=== PATIENT | female | born 1995 | race Caucasian/White ===

== ENCOUNTER 2019-05-09 00:26 | Inpatient (IN) | payer BC ==
[2019-05-09] MEDS ORDERED: ceFAZolin 2 GM in Premix Bag 1 BAG IV ONE (05:00)
[2019-05-09] MEDS ORDERED: Sodium Chloride 0.9% 2.5 ML Syringe FLUSH PRN (05:14)
[2019-05-09] MEDS ORDERED: Sodium Chloride 0.9% 10 ML Syringe FLUSH PRN (05:14)
[2019-05-09] MEDS ORDERED: Sodium Chloride 0.9% 10 ML SDV IV PRN (05:14)
[2019-05-09] MEDS ORDERED: Citric Acid/Sodium Citrate Solution 30 ML Cup PO ONE (05:14)
[2019-05-09] MEDS ORDERED: Oxytocin/0.9 % Sodium Chloride 30 UNIT/500 ML BAG IV SCH (05:15)
[2019-05-09] MEDS: Lactated Ringers 1,000 ML IV SCH ×2 (05:45→06:46)
--- NOTE | 2019-05-09 06:50 | PCM.PREANE ---
Preanesthetic Assessment - Anesthesia/Transfusion/Family Hx Anesthesia History: Prior Anesthesia Reaction Family History of Anesthesia Reaction: No Transfusion History: No Prior Transfusion(s) Type of Transfusion Reactions: Reports: Unknown Intubation History: Unknown - Review of Systems General: No Symptoms Pulmonary: No Symptoms Cardiovascular: No Symptoms Gastrointestinal: No Symptoms Neurological: No Symptoms Other: Reports: None - Physical Assessment Height: 5 ft 9 in Weight: 82.544 kg ASA Class: 2 Mental Status: Alert & Oriented x3 Airway Class: Mallampati = 2 Dentition: Reports: Normal Dentition Thyro-Mental Finger Breadths: 3 Mouth Opening Finger Breadths: 3 ROM/Head Extension: Full Lungs: Clear to Auscultation, Normal Respiratory Effort Cardiovascular: Regular Rate, Regular Rhythm - Lab Values: Laboratory Last Values WBC 8.95 K/uL (4.0-11.0) 05/09/19 05:33 RBC 4.01 M/uL (4.30-5.90) L 05/09/19 05:33 Hgb 11.8 g/dL (12.0-16.0) L 05/09/19 05:33 Hct 36.4 % (36.0-46.0) 05/09/19 05:33 MCV 90.8 fL (80.0-98.0) 05/09/19 05:33 MCH 29.4 pg (27.0-32.0) 05/09/19 05:33 MCHC 32.4 g/dL (31.0-37.0) 05/09/19 05:33 RDW Std Deviation 45.1 fl (28.0-62.0) 05/09/19 05:33 RDW Coeff of Olga 14 % (11.0-15.0) 05/09/19 05:33 Plt Count 236 K/uL (150-400) 05/09/19 05:33 MPV 10.90 fL (7.40-12.00) 05/09/19 05:33 Nucleated RBC % 0.0 /100WBC 05/09/19 05:33 Nucleated RBCs # 0 K/uL 05/09/19 05:33 Blood Type A POSITIVE 05/09/19 05:33 Antibody Screen NEGATIVE 05/09/19 05:33 - Allergies Allergies/Adverse Reactions: Allergies Allergy/AdvReac Type Severity Reaction Status Date / Time No Known Allergies Allergy Verified 05/04/19 07:32 - Blood Blood Available: No - Anesthesia Plan Pre-Op Medication Ordered: None - Acknowledgements Anesthesia Type Planned: Spinal (general anesthesia back-up plan) Pt an Appropriate Candidate for the Planned Anesthesia: Yes Alternatives and Risks of Anesthesia Discussed w Pt/Guardian: Yes Pt/Guardian Understands and Agrees with Anesthesia Plan: Yes PreAnesthesia Questionnaire HEENT History: Reports: None Cardiovascular History: Reports: None Respiratory History: Reports: Asthma Gastrointestinal History: Reports: GERD Genitourinary History: Reports: None 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: Musculoskeletal History: Reports: None Neurological History: Reports: Concussion Psychiatric History: Reports: None Endocrine/Metabolic History: Reports: None Hematologic History: Reports: None Immunologic History: Reports: None Oncologic (Cancer) History: Reports: None Dermatologic History: Reports: None - Infectious Disease History Infectious Disease History: Reports: Chicken Pox - Past Surgical History Head Surgeries/Procedures: Reports: None HEENT Surgical History: Reports: Tonsillectomy Cardiovascular Surgical History: Reports: None Respiratory Surgical History: Reports: None GI Surgical History: Reports: None Female Surgical History: Reports: Section (emergency C/S, spinal did not have time take in) Endocrine Surgical History: Reports: None Neurological Surgical History: Reports: None Musculoskeletal Surgical History: Reports: None Oncologic Surgical History: Reports: None Dermatological Surgical History: Reports: None - SUBSTANCE USE Smoking Status *Q: Current Every Day Smoker Tobacco Use Within Last Twelve Months: Cigars Second Hand Smoke Exposure: No Recreational Drug Use History: No - HOME MEDS Home Medications: Home Meds Albuterol Sulfate [Albuterol Sulfate Hfa] 1 inhalation INH ASDIRECTED PRN [History] PNV95/Ferrous Fumarate/FA [ Vitamin Tablet] 1 tab PO DAILY 05/04/19 [ History] Sucralfate 1 tab PO QID 05/04/19 [History] - CURRENT (IN HOUSE) MEDS Current Meds: Current Medications Lactated Ringer's (Ringers, Lactated) 1,000 mls @ 500 mls/hr IV BOLUS DAIJA Last Admin: 05/09/19 06:46 Dose: 500 mls/hr Oxytocin/Sodium Chloride (Oxytocin 30 Unit/500 Ml-Ns) 30 unit in 500 mls @ 250 mls/hr IV TITRATE DAIJA Sodium Chloride (Saline Flush) 10 ml FLUSH ASDIRECTED PRN PRN Reason: Keep Vein Open Sodium Chloride (Saline Flush) 2.5 ml FLUSH ASDIRECTED PRN PRN Reason: Keep Vein Open Sodium Chloride (Normal Saline) 10 ml IV ASDIRECTED PRN PRN Reason: IV Use Discontinued Medications Citric Acid/Sodium Citrate (Bicitra Solution) 30 ml PO ONETIME ONE Stop: 05/09/19 05:15 Cefazolin Sodium/Dextrose 2 gm (/ Premix) 50 mls @ 100 mls/hr IV ONETIME ONE Stop: 05/09/19 05:29
[2019-05-09] MEDS ORDERED: Sodium Chloride 0.9% 40 ML ONE (07:28)
[2019-05-09] MEDS ORDERED: Oxytocin 10 Units/1 ML SDV ONE (07:28)
[2019-05-09] MEDS ORDERED: ceFAZolin 1 GM Vial ONE (07:28)
[2019-05-09] MEDS ORDERED: Morphine PF 10 MG/10 ML SDV ONE (07:28)
[2019-05-09] MEDS ORDERED: Ondansetron 4 MG/2 ML SDV ONE (07:28)
[2019-05-09] MEDS ORDERED: ePHEDrine 50 MG/ML SDV ONE (07:28)
[2019-05-09] MEDS ORDERED: Phenylephrine/Normal Saline 100 MCG/ML 10 ML Syringe ONE (08:03)
[2019-05-09] MEDS ORDERED: Midazolam 1 MG/ML 2 ML SDV ONE (08:18)
[2019-05-09] MEDS ORDERED: Acetaminophen/oxyCODONE 325-5 MG Tab PO PRN ×2 (08:47→08:57)
[2019-05-09] MEDS ORDERED: Aluminum Hydroxide/Magnesium Hydroxide/Simethicone Susp 30 ML Cup PO PRN (08:47)
[2019-05-09] MEDS ORDERED: diphenhydrAMINE 50 MG/ML SDV IVPUSH PRN ×2 (08:47→08:57)
[2019-05-09] MEDS ORDERED: Bisacodyl 10 MG Supp RECTAL PRN (08:47)
[2019-05-09] MEDS ORDERED: Lanolin 100% Cream 7 GM Tube TOP PRN (08:47)
[2019-05-09] MEDS ORDERED: Ondansetron 4 MG/2 ML SDV IVPUSH PRN ×2 (08:47→08:57)
--- NOTE | 2019-05-09 08:56 | PCM.OPNOTE ---
- General Post-Op/Procedure Note Date of Surgery/Procedure: 05/09/19 Operative Procedure(s): Repeat LTCS Findings: Viable female APGARS 9, 9 weight 3430 gm. Intact placenta with 3V cord Pre Op Diagnosis: 39 week IUP. Previous csection, desires repeat Post-Op Diagnosis: Same Anesthesia Technique: Spinal Primary Surgeon: Niki Arias Global Recruiter: Nancy Cowan Global Recruiter: Elkin Frost Fluid Replacement, Intraop: 1,500 EBL in mLs: 500 Complications: none known Condition: Stable Free Text/Narrative:: Dictation [id number]
[2019-05-09] MEDS ORDERED: fentaNYL 100 MCG/2 ML SDV IVPUSH PRN (08:57)
[2019-05-09] MEDS ORDERED: Naloxone 0.4 MG/ML Syringe IVPUSH PRN (08:57)
[2019-05-09] MEDS ORDERED: Nalbuphine 10 MG/1 ML Vial IVPUSH PRN ×2 (08:57→11:00)
[2019-05-09] MEDS ORDERED: Lactated Ringers 1,000 ML IV SCH (09:00)
[2019-05-09] MEDS: Ketorolac 30 MG/ML SDV IVPUSH SCH ×3 (09:14→21:44)
--- NOTE | 2019-05-09 09:32 | PCM.POSTAN ---
POST ANESTHESIA ASSESSMENT - MENTAL STATUS Mental Status: Alert, Oriented - VITAL SIGNS Vital Signs: Last Vital Signs Temp 37 C 05/09/19 08:52 Pulse 69 05/09/19 09:25 Resp 13 05/09/19 09:25 BP 118/59 L 05/09/19 09:25 Pulse Ox 99 05/09/19 09:25 - RESPIRATORY Respiratory Status: Respiratory Rate WNL, Airway Patent, O2 Saturation Stable - CARDIOVASCULAR CV Status: Pulse Rate WNL, Blood Pressure Stable - GASTROINTESTINAL GI Status: No Symptoms - PAIN Pain Score: 0 - POST OP HYDRATION Hydration Status: Adequate & Stable - OBSERVATIONS Free Text/Narrative:: No anesthesia problems
[2019-05-09] MEDS: Docusate Sodium 100 MG Cap PO SCH ×2 (10:18→21:44)
--- NOTE | 2019-05-09 12:12 | OR ---
SURGEON: Niki Arias M.D. DATE OF PROCEDURE: 05/09/2019 PREOPERATIVE DIAGNOSES: 1. A 39 weeks' intrauterine . 2. Previous section, desires repeat. POSTOPERATIVE DIAGNOSES: 1. A 39 weeks' intrauterine . 2. Previous section, desires repeat. PROCEDURE: Repeat low-transverse section. PRIMARY SURGEON: Niki Arias MD. PIPE THREADER: 1. Lauren Cowan. 2. Rosie Frost MS4. ANESTHESIA: Spinal. ESTIMATED BLOOD LOSS: 500 mL. FLUIDS: 1500 mL of crystalloid. COMPLICATIONS: None known. FINDINGS: Viable female. scores 9 at 1 minute and 9 at 5 minutes. Weight 3430 g. Intact placenta, 3-vessel cord. Normal-appearing pelvis. DISPOSITION: Infant to nursery, mom in LDRP, stable. PROCEDURE DETAILS: Bridget is a 24-year-old, G2, P1, at 39 weeks' gestational age, who presents on the morning of 05/09/2019 for scheduled repeat delivery. Risks of procedure have been discussed. Proper consent obtained. The patient was taken to the operating room. The patient underwent spinal anesthetic, was then placed in the dorsal supine position with leftward tilt. SCDs to lower extremities. Waddell to gravity. Was prepped and draped in usual sterile fashion. Time-out was performed. Anesthesia was tested, found to be adequate. Previous Pfannenstiel scar was now excised. Subcutaneous tissue was incised down to level of the rectus fascia, which was incised in midline, lateralized on either side sharply and bluntly. Superior aspect of the fascia was tented upward, dissected sharply and bluntly away from underlying muscles. In a similar aspect, performed the inferior aspect of the fascia. Rectus muscles were now sharply in the midline. Peritoneum was entered. Rectus muscles and peritoneum were lateralized bluntly. Uterine position and position palpated. Self-retaining retractor was gently placed. Uterovesical reflection was visualized. Bladder flap was created sharply and bluntly. Bladder was mobilized away from lower uterine segment. Low transverse hysterotomy was now performed. Uterine cavity was entered with blunt-ended scalpel. Amniotomy was performed. Clear fluid was returned and hysterotomy was now lateralized bluntly. The 's head was flexed, delivered from the pelvis. Fundal pressure was applied while the head was delivered followed by anterior shoulder, posterior shoulder, and remainder of the body without difficulty. The 's oropharynx and nares were bulb suctioned. After a delay, cord was clamped x2 and cut. was handed off to attending nursery staff. Cord arterial, cord venous, cord blood sampling obtained. The placenta was now delivered. Uterine cavity was cleared of all clot and debris. Hysterotomy was repaired using 0 Vicryl in continuous running locked fashion followed by re-imbricating layer. The posterior aspect of the uterus inspected, no defects or hematomas were found be forming. Region was well irrigated, suction dried. Uterus returned to abdominal cavity. The colonic gutters were cleared of all clot and debris, well irrigated and suction dried. Hysterotomy was again inspected and found to be hemostatic. Self- retaining retractor now gently removed. Bladder blade, which was now placed. Hysterotomy was again inspected. Areas of serosal oozing were cauterized. Otherwise, hemostasis evident. The bladder blade was removed. Rectus muscle and peritoneum were now reapproximated using inverted mattress suture technique. Anterior aspect of the muscle, posterior aspect of the fascia closely inspected, any areas of oozing were cauterized. The rectus fascia was reapproximated using 0 Vicryl in continuous running fashion, beginning laterally on either side and meeting in the midline. Subcutaneous tissue was well irrigated, suction dried, any areas of oozing were cauterized. The skin edges were reapproximated using 4 - 0 Vicryl on a Santana needle in subcuticular fashion followed by re-imbrication with half-inch Steri-Strips and Mastisol. Sponge, instrument, and needle count was correct x2. The patient has tolerated the procedure well overall. She will go to PACU in stable condition, infant to nursery. LEVY / SERGEY /[id number] LARA
[2019-05-09] MEDS: Simethicone 80 MG Tab.Chew PO SCH ×2 (13:51→21:20)
--- NOTE | 2019-05-09 20:53 | PCM48HPAN ---
Post Anesthesia Note - EVALUATION WITHIN 48HRS OF ANESTHETIC Vital Signs in Normal Range: Yes Patient Participated in Evaluation: Yes Respiratory Function Stable: Yes Airway Patent: Yes Cardiovascular Function Stable: Yes Hydration Status Stable: Yes Pain Control Satisfactory: Yes Nausea and Vomiting Control Satisfactory: Yes Mental Status Recovered: Yes Vital Signs: Last Vital Signs Temp 36.5 C 05/09/19 19:00 Pulse 73 05/09/19 19:00 Resp 17 05/09/19 19:00 BP 110/60 05/09/19 19:00 Pulse Ox 97 05/09/19 19:00 - COMMENTS/OBSERVATIONS Free Text/Narrative:: patient has a lot of itching. She has received Nubain for this. She has been up to the bathroom and was able to void.
[2019-05-10] MEDS: Simethicone 80 MG Tab.Chew PO SCH ×4 (00:21→18:28)
[2019-05-10] MEDS: Ketorolac 30 MG/ML SDV IVPUSH SCH ×2 (03:30→09:25)
--- NOTE | 2019-05-10 06:41 | PCM.PNPP ---
- General Info Date of Service: 05/10/19 Functional Status: Reports: Pain Controlled, Tolerating Diet, Ambulating, Urinating - Review of Systems General: Reports: Fatigue. Denies: Fever, Weakness Pulmonary: Denies: Shortness of Breath Cardiovascular: Denies: Chest Pain, Palpitations, Lightheadedness Gastrointestinal: Denies: Abdominal Pain, Nausea, Vomiting Genitourinary: Denies: Flank Pain Musculoskeletal: Reports: No Symptoms Skin: Reports: No Symptoms Neurological: Reports: No Symptoms Psychiatric: Reports: No Symptoms - General Info Date of Service: 05/10/19 - Patient Data Vital Signs - Most Recent: Last Vital Signs Temp 35.9 C 05/10/19 04:00 Pulse 75 05/10/19 06:00 Resp 14 05/10/19 06:00 BP 102/53 L 05/10/19 04:00 Pulse Ox 96 05/10/19 06:00 Weight - Most Recent: 82.544 kg I&O - Last 24 Hours: Intake & Output 05/09/19 05/09/19 05/10/19 14:59 22:59 06:59 Intake Total 3100 Output Total 475 975 Balance 2625 -975 Lab Results - Last 24 Hours: Laboratory Results - last 24 hr 05/09/19 05/09/19 05/10/19 Range/Units 05:33 08:18 06:13 Hgb 10.7 L (12.0-16.0) g/dL Hct 33.3 L (36.0-46.0) % Cord ABG pH 7.276 (7.18-7.38) Cord ABG Base Excess -4 (-10--2) Cord VBG pH 7.334 (7.25-7.45) Cord VBG Base Excess -4 (-10--2) Blood Type A POSITIVE Antibody Screen NEGATIVE Med Orders - Current: Current Medications Al Hydroxide/Mg Hydroxide (Mag-Al Plus) 30 ml PO Q8H PRN PRN Reason: Heartburn Bisacodyl (Dulcolax) 10 mg RECTAL ONETIME PRN PRN Reason: Constipation Diphenhydramine HCl (Benadryl) 25 mg IVPUSH Q6H PRN PRN Reason: Itching or Nausea Diphenhydramine HCl (Benadryl) 25 mg IVPUSH Q4H PRN PRN Reason: Itching Stop: 05/10/19 08:57 Docusate Sodium (Colace) 100 mg PO BID [facility] Last Admin: 05/09/19 21:44 Dose: 100 mg Emollient Ointment (Lansinoh Hpa) 0 gm TOP ASDIRECTED PRN PRN Reason: Sore Nipples Last Admin: 05/09/19 15:37 Dose: 7 gm Fentanyl (Sublimaze) 50 mcg IVPUSH Q1H PRN PRN Reason: Pain (severe 7-10) Lactated Ringer's (Ringers, Lactated) 1,000 mls @ 500 mls/hr IV BOLUS [facility] Last Admin: 05/09/19 06:46 Dose: 500 mls/hr Oxytocin/Sodium Chloride (Oxytocin 30 Unit/500 Ml-Ns) 30 unit in 500 mls @ 250 mls/hr IV TITRATE [facility] Lactated Ringer's (Ringers, Lactated) 1,000 mls @ 125 mls/hr IV ASDIRECTED [facility] Last Admin: 05/09/19 13:45 Dose: 125 mls/hr Ibuprofen (Motrin) 800 mg PO Q8H PRN PRN Reason: mild pain or fever Ketorolac Tromethamine (Toradol) 30 mg IVPUSH Q6H [facility] Stop: 05/10/19 09:01 Last Admin: 05/10/19 03:30 Dose: 30 mg Nalbuphine HCl (Nubain) 5 mg IVPUSH .Q4-Q6H PRN PRN Reason: Itching Last Admin: 05/09/19 14:22 Dose: 5 mg Naloxone HCl (Narcan) 0.1 mg IVPUSH ONETIME PRN PRN Reason: Respiratory Depression Stop: 05/10/19 08:57 Ondansetron HCl (Zofran) 4 mg IVPUSH Q4H PRN PRN Reason: Nausea/Vomiting Last Admin: 05/09/19 13:20 Dose: 4 mg Ondansetron HCl (Zofran) 4 mg IVPUSH Q6H PRN PRN Reason: Nausea Oxycodone/Acetaminophen (Percocet 325-5 Mg) 1 tab PO Q4H PRN PRN Reason: Pain (moderate 4-6) Oxycodone/Acetaminophen (Percocet 325-5 Mg) 2 tab PO Q4H PRN PRN Reason: Pain (moderate 4-6) Simethicone (Simethicone) 160 mg PO QID [facility]IJA Last Admin: 05/10/19 06:24 Dose: 160 mg Sodium Chloride (Saline Flush) 10 ml FLUSH ASDIRECTED PRN PRN Reason: Keep Vein Open Sodium Chloride (Saline Flush) 2.5 ml FLUSH ASDIRECTED PRN PRN Reason: Keep Vein Open Sodium Chloride (Normal Saline) 10 ml IV ASDIRECTED PRN PRN Reason: IV Use Discontinued Medications Cefazolin Sodium (Ancef) Confirm Administered Dose 2 gm .ROUTE .STK-MED ONE Stop: 05/09/19 07:29 Citric Acid/Sodium Citrate (Bicitra Solution) 30 ml PO ONETIME ONE Stop: 05/09/19 05:15 Last Admin: 05/09/19 13:59 Dose: Not Given Ephedrine Sulfate (Ephedrine Sulfate) Confirm Administered Dose 50 mg .ROUTE .STK-MED ONE Stop: 05/09/19 07:29 Cefazolin Sodium/Dextrose 2 gm (/ Premix) 50 mls @ 100 mls/hr IV ONETIME ONE Stop: 05/09/19 05:29 Last Admin: 05/09/19 13:59 Dose: Not Given Sodium Chloride (Normal Saline) Confirm Administered Dose 40 mls @ as directed .ROUTE .STK-MED ONE Stop: 05/09/19 07:29 Midazolam HCl (Versed 1 Mg/Ml) Confirm Administered Dose 2 mg .ROUTE .STK-MED ONE Stop: 05/09/19 08:19 Morphine Sulfate (Duramorph Pf) Confirm Administered Dose 10 mg .ROUTE .STK-MED ONE Stop: 05/09/19 07:29 Nalbuphine HCl (Nubain) 5 mg IVPUSH ASDIRECTED PRN PRN Reason: Itching Last Admin: 05/09/19 10:14 Dose: 5 mg Ondansetron HCl (Zofran) Confirm Administered Dose 4 mg .ROUTE .STK-MED ONE Stop: 05/09/19 07:29 Oxycodone/Acetaminophen (Percocet 325-5 Mg) 2 tab PO Q6H PRN PRN Reason: Pain (moderate 4-6) Stop: 05/09/19 11:00 Oxytocin (Pitocin) Confirm Administered Dose 30 unit .ROUTE .STK-MED ONE Stop: 05/09/19 07:29 Phenylephrine HCl (Phenylephrine In Ns 100 Mcg/Ml) Confirm Administered Dose 1 mg .ROUTE .STK-MED ONE Stop: 05/09/19 08:04 - Interaction Infant Disposition, : [place] in Room with Family Infant Interaction: Holding Infant Feeding: Encouraged to Breastfeed Support Person: - Recovery Exam Fundal Tone: Firm Fundal Level: 1 Fingerbreadths Below Umbilicus Fundal Placement: Midline Lochia Amount: Scant, Small Lochia Color: Rubra/Red Perineum Description: Intact, Minimal Bruising/Swelling Episiotomy/Laceration: None Bladder Status: Voiding Urinary Elimination: Voided - Exam General: Alert, Oriented Lungs: Normal Respiratory Effort Cardiovascular: Regular Rate, Regular Rhythm GI/Abdominal Exam: Normal Bowel Sounds, Soft. No: Guarding Extremities: Pedal Edema (trace). No: Whitney's Sign Skin: Warm, Dry, Intact Wound/Incisions: Healing Well, Dressing Dry and Intact Neurological: No New Focal Deficit Psy/Mental Status: Alert, Normal Affect, Normal Mood - Problem List & Annotations (1) section SNOMED Code(s): 86826561 - section Status: Acute Priority: Medium Current Visit: No - Problem List Review Problem List Initiated/Reviewed/Updated: Yes - My Orders Last 24 Hours: My Active Orders 05/09/19 08:47 Notify Provider Intake and Out [RC] ASDIRECTED Notify Provider Vital Signs [RC] ASDIRECTED Acetaminophen/oxyCODONE [Percocet 325-5 MG] 1 tab PO Q4H PRN Acetaminophen/oxyCODONE [Percocet 325-5 MG] 2 tab PO Q4H PRN Alum Hydrox/Mag Hydrox/Simeth [Mag-Al Plus] 30 ml PO Q8H PRN Bisacodyl [Dulcolax] 10 mg RECTAL ONETIME PRN Ibuprofen [Motrin] 800 mg PO Q8H PRN Lanolin [Lansinoh HPA] See Dose Instructions TOP ASDIRECTED PRN Ondansetron [Zofran] 4 mg IVPUSH Q4H PRN diphenhydrAMINE [Benadryl] 25 mg IVPUSH Q6H PRN Abdominal Binder [OM.PC] Routine Heat Therapy [OM.PC] Routine Ice Therapy [OM.PC] Routine 05/09/19 08:48 Patient Status [ADT] Routine Ambulate [RC] PER UNIT ROUTINE Antiembolic Devices [RC] PER UNIT ROUTINE Communication Order [RC] PER UNIT ROUTINE Communication Order [RC] PER UNIT ROUTINE Communication Order [RC] Per Unit Routine May Shower [RC] ASDIRECTED RT Incentive Spirometry [RC] Q2HWA Assess Lochia [WOMSER] Per Unit Routine Assess Uterine Involution [WOMSER] Per Unit Routine Breast Pump [WOMSER] Per Unit Routine Peripheral IV Discontinue [OM.PC] Routine Sequential Compression Device [OM.PC] Per Unit Routine 05/09/19 09:00 Docusate Sodium [Colace] 100 mg PO BID Ketorolac [Toradol] 30 mg IVPUSH Q6H Lactated Ringers [Ringers, Lactated] 1,000 ml IV ASDIRECTED 05/09/19 12:00 Simethicone 160 mg PO QID 05/09/19 Lunch Regular Diet [DIET] - Assessment Assessment:: POD 1 status post repeat c section - Plan Plan:: VS amd labs are reassuring. Encourage ambulation today and may shower later. Continue postoperative cares.
[2019-05-10] MEDS: Docusate Sodium 100 MG Cap PO SCH ×2 (09:28→21:15)
[2019-05-10] MEDS: Acetaminophen/oxyCODONE 325-5 MG Tab PO PRN (16:07)
[2019-05-10] MEDS: Ibuprofen 800 MG Tab PO PRN (16:08)
[2019-05-11] MEDS: Simethicone 80 MG Tab.Chew PO SCH (00:50)
[2019-05-11] MEDS: Acetaminophen/oxyCODONE 325-5 MG Tab PO PRN ×2 (00:51→05:28)
[2019-05-11] MEDS ORDERED: diphenhydrAMINE 25 MG Cap PO PRN (04:50)
[2019-05-11] MEDS: Docusate Sodium 100 MG Cap PO SCH (08:21)
[2019-05-11] MEDS: Ibuprofen 800 MG Tab PO PRN (08:21)
--- NOTE | 2019-05-11 08:51 | PCM.PNPP ---
- General Info Date of Service: 05/11/19 Functional Status: Reports: Pain Controlled, Tolerating Diet, Ambulating, Urinating - Review of Systems General: Reports: Fatigue. Denies: Fever, Weakness Pulmonary: Denies: Shortness of Breath Cardiovascular: Denies: Chest Pain, Palpitations, Lightheadedness Gastrointestinal: Reports: Abdominal Pain (incisional, controlled overall with pain meds), Flatus. Denies: Nausea, Vomiting Genitourinary: Denies: Flank Pain Skin: Reports: No Symptoms Neurological: Reports: No Symptoms Psychiatric: Reports: No Symptoms - General Info Date of Service: 05/11/19 - Patient Data Vital Signs - Most Recent: Last Vital Signs Temp 36.6 C 05/11/19 04:10 Pulse 79 05/11/19 04:10 Resp 16 05/11/19 04:10 BP 97/65 05/11/19 04:10 Pulse Ox 96 05/11/19 04:10 Weight - Most Recent: 82.544 kg Med Orders - Current: Current Medications Al Hydroxide/Mg Hydroxide (Mag-Al Plus) 30 ml PO Q8H PRN PRN Reason: Heartburn Bisacodyl (Dulcolax) 10 mg RECTAL ONETIME PRN PRN Reason: Constipation Diphenhydramine HCl (Benadryl) 25 mg IVPUSH Q6H PRN PRN Reason: Itching or Nausea Diphenhydramine HCl (Benadryl) 25 mg PO Q6H PRN PRN Reason: Itching Last Admin: 05/11/19 04:59 Dose: 25 mg Docusate Sodium (Colace) 100 mg PO BID [facility] Last Admin: 05/11/19 08:21 Dose: 100 mg Emollient Ointment (Lansinoh Hpa) 0 gm TOP ASDIRECTED PRN PRN Reason: Sore Nipples Last Admin: 05/09/19 15:37 Dose: 7 gm Fentanyl (Sublimaze) 50 mcg IVPUSH Q1H PRN PRN Reason: Pain (severe 7-10) Lactated Ringer's (Ringers, Lactated) 1,000 mls @ 500 mls/hr IV BOLUS [facility] Last Admin: 05/09/19 06:46 Dose: 500 mls/hr Oxytocin/Sodium Chloride (Oxytocin 30 Unit/500 Ml-Ns) 30 unit in 500 mls @ 250 mls/hr IV TITRATE [facility] Lactated Ringer's (Ringers, Lactated) 1,000 mls @ 125 mls/hr IV ASDIRECTED [facility] Last Admin: 05/09/19 13:45 Dose: 125 mls/hr Ibuprofen (Motrin) 800 mg PO Q8H PRN PRN Reason: mild pain or fever Last Admin: 05/11/19 08:21 Dose: 800 mg Nalbuphine HCl (Nubain) 5 mg IVPUSH .Q4-Q6H PRN PRN Reason: Itching Last Admin: 05/09/19 14:22 Dose: 5 mg Ondansetron HCl (Zofran) 4 mg IVPUSH Q4H PRN PRN Reason: Nausea/Vomiting Last Admin: 05/09/19 13:20 Dose: 4 mg Ondansetron HCl (Zofran) 4 mg IVPUSH Q6H PRN PRN Reason: Nausea Oxycodone/Acetaminophen (Percocet 325-5 Mg) 1 tab PO Q4H PRN PRN Reason: Pain (moderate 4-6) Last Admin: 05/11/19 05:28 Dose: 1 tab Oxycodone/Acetaminophen (Percocet 325-5 Mg) 2 tab PO Q4H PRN PRN Reason: Pain (moderate 4-6) Simethicone (Simethicone) 160 mg PO QID [facility] Last Admin: 05/11/19 00:50 Dose: 160 mg Sodium Chloride (Saline Flush) 10 ml FLUSH ASDIRECTED PRN PRN Reason: Keep Vein Open Sodium Chloride (Saline Flush) 2.5 ml FLUSH ASDIRECTED PRN PRN Reason: Keep Vein Open Sodium Chloride (Normal Saline) 10 ml IV ASDIRECTED PRN PRN Reason: IV Use Discontinued Medications Cefazolin Sodium (Ancef) Confirm Administered Dose 2 gm .ROUTE .STK-MED ONE Stop: 05/09/19 07:29 Citric Acid/Sodium Citrate (Bicitra Solution) 30 ml PO ONETIME ONE Stop: 05/09/19 05:15 Last Admin: 05/09/19 13:59 Dose: Not Given Diphenhydramine HCl (Benadryl) 25 mg IVPUSH Q4H PRN PRN Reason: Itching Stop: 05/10/19 08:57 Ephedrine Sulfate (Ephedrine Sulfate) Confirm Administered Dose 50 mg .ROUTE .STK-MED ONE Stop: 05/09/19 07:29 Cefazolin Sodium/Dextrose 2 gm (/ Premix) 50 mls @ 100 mls/hr IV ONETIME ONE Stop: 05/09/19 05:29 Last Admin: 05/09/19 13:59 Dose: Not Given Sodium Chloride (Normal Saline) Confirm Administered Dose 40 mls @ as directed .ROUTE .STK-MED ONE Stop: 05/09/19 07:29 Ketorolac Tromethamine (Toradol) 30 mg IVPUSH Q6H [facility] Stop: 05/10/19 09:01 Last Admin: 05/10/19 09:25 Dose: 30 mg Midazolam HCl (Versed 1 Mg/Ml) Confirm Administered Dose 2 mg .ROUTE .STK-MED ONE Stop: 05/09/19 08:19 Morphine Sulfate (Duramorph Pf) Confirm Administered Dose 10 mg .ROUTE .STK-MED ONE Stop: 05/09/19 07:29 Nalbuphine HCl (Nubain) 5 mg IVPUSH ASDIRECTED PRN PRN Reason: Itching Last Admin: 05/09/19 10:14 Dose: 5 mg Naloxone HCl (Narcan) 0.1 mg IVPUSH ONETIME PRN PRN Reason: Respiratory Depression Stop: 05/10/19 08:57 Ondansetron HCl (Zofran) Confirm Administered Dose 4 mg .ROUTE .STK-MED ONE Stop: 05/09/19 07:29 Oxycodone/Acetaminophen (Percocet 325-5 Mg) 2 tab PO Q6H PRN PRN Reason: Pain (moderate 4-6) Stop: 05/09/19 11:00 Oxytocin (Pitocin) Confirm Administered Dose 30 unit .ROUTE .STK-MED ONE Stop: 05/09/19 07:29 Phenylephrine HCl (Phenylephrine In Ns 100 Mcg/Ml) Confirm Administered Dose 1 mg .ROUTE .STK-MED ONE Stop: 05/09/19 08:04 - Infant Interaction Disposition, : in Room with Family Interaction: Holding Infant Feeding: Encouraged to Breastfeed Support Person: - Recovery Exam Fundal Tone: Firm Fundal Level: 2 Fingerbreadths Below Umbilicus Fundal Placement: Right Lochia Amount: Scant Lochia Color: Rubra/Red Perineum Description: Intact, Minimal Bruising/Swelling Episiotomy/Laceration: None Bladder Status: Voiding Urinary Elimination: Voided - Exam General: Alert, Oriented Lungs: Normal Respiratory Effort Cardiovascular: Regular Rate, Regular Rhythm GI/Abdominal Exam: Normal Bowel Sounds, Soft Extremities: Pedal Edema (1+). No: Whitney's Sign Skin: Warm, Dry, Intact Wound/Incisions: Healing Well, No Drainage. No: Erythema Neurological: No New Focal Deficit Psy/Mental Status: Alert, Normal Affect, Normal Mood - Problem List & Annotations (1) section SNOMED Code(s): 29943110 - section Status: Acute Priority: Medium Current Visit: No - Problem List Review Problem List Initiated/Reviewed/Updated: Yes - My Orders Last 24 Hours: My Active Orders 05/11/19 08:48 Ready for Discharge [RC] PER UNIT ROUTINE - Assessment Assessment:: POD 2 status post repeat c section - Plan Plan:: Doing well overall, would like to go home. Discharge instructions reviewed. Follow up at [facility] 2 and 6 weeks. Infection and bleeding warnings reviewed. Discharge to home today.
== END 2019-05-11 12:00 | disposition home or self-care (01) | DRG 540 ==
LOC: MW.OB 04:58
PROVIDERS: ADMIT Obstetrics & Gynecology; ATTEND Obstetrics & Gynecology
PROC: 10D00Z1 Extraction of Products of Conception, Low, Open Approach (ICD-10-PCS; principal; 2019-05-09)
DX: O34.211 Maternal care for low transverse scar from previous cesarean delivery (principal); J45.909 Unspecified asthma, uncomplicated; O99.52 Diseases of the respiratory system complicating childbirth; O99.334 Smoking (tobacco) complicating childbirth; F17.210 Nicotine dependence, cigarettes, uncomplicated; Z3A.39 39 weeks gestation of pregnancy; Z37.0 Single live birth
CPT/HCPCS: 01961; 36415; 59025; 82803; 85014; 85018; 85027; 86850; 86900; 86901; A9270-GY; J0690; J1885; J2250; J2270; J2300; J2370; J2405; J2590; J7120